=== PATIENT | female | born 1990 | race Two or more races ===

== ENCOUNTER 2025-01-28 09:00 | Day surgery (SDC) | payer OTHER ==
[2025-01-16 11:55] VITALS: BP 149/80; BP 149/88
[2025-01-16 12:21] LABS: URINE APPEARANCE Clear; URINE BILIRRUBIN Negative (NEGATIVE); URINE BLOOD Moderate; URINE COLOR Yellow; URINE GLUCOSE Negative (NEGATIVE); URINE KETONE Negative (NEGATIVE); URINE LEUKOCYTE Negative; URINE NITRATE Negative; URINE PROTEIN Negative (NEGATIVE); URINE UROBILINOGEN 0.2 E.U./dl
[2025-01-16 12:24] LABS: URINE BACTERIA 1432.8 uL (0.0-1933); URINE EPITHELIAL CELLS 48.8 uL (0.0-38.8); URINE RBC 33.2 uL (0.0-20.8); URINE WBC 13.8 uL (0.0-23.2)
[2025-01-16 12:25] LABS: URINE CAST 0.00 uL (0.0-1.40)
[2025-01-16 12:41] LABS: BASO % 0.6 % (0.1-1.2); EOS # 0.31 (0.04-0.54); EOS % 2.9 % (0.7-7.0); LYMPH # 2.73 (1.18-3.74); LYMPH % 25.8 % (19.3-53.1); MEAN PLATELET VOLUME 10.00 fl (9.4-12.4); MONO # 0.60 (0.24-0.82); MONO % 5.7 % (4.7-12.5); NEUT # 6.88 (1.56-6.13); NEUT % 64.8 % (34.0-71.1); RED CELL DISTRIBUTION WIDTH 14.8 % (11.6-14.4)
[2025-01-16 13:03] LABS: ALT/SGPT 20.0 U/L (12-78); AST/SGOT 10.0 U/L (15-37); BILIRUBIN TOTAL 0.24 mg/dL (0.3-1.2); BUN CREA RATIO 22.0 (7.0-25.0); CREATININE SERUM 0.6 mg/dL (0.55-1.02); GFR 113.76; GLOBULINA 3.5 G/DL (2.4-3.5); GLUCOSE FASTING 95.0 mg/dL (65-100); OSMOLALITY SERUM 285.0 MOSM/KG (275-295)
[2025-01-16 13:11] LABS: INR 1.05
[~2025-01-28] VITALS: Ht 157.5 cm; Wt 101.6 kg
[~2025-01-28 09:00] MED LIST: CHLORHEXIDINE GLUCONATE 120 ML BOTTLE TOP ONE; KETOROLAC TROMETHAMINE 30 MG VIAL IV STA; METFORMIN HCL500 M3 PO; POVIDONE-IODINE 118 ML BOTT TOP ONE; PRILOSEC OTC20 MG PO; RINGERS SOLUTION,LACTATED 1,000 ML IV SCH; TRANEXAMIC ACI650 MG PO
== END 2025-01-28 14:05 | disposition home or self-care (01) ==
LOC: CIR.AMB 09:00
PROVIDERS: ATTEND Student in an Organized Health Care Education/Training Program
DX: N93.8 Other specified abnormal uterine and vaginal bleeding (principal); D25.0 Submucous leiomyoma of uterus